=== PATIENT | female | born 1945 | race Caucasian/White ===

== ENCOUNTER → 2018-02-21 | Day surgery (SDC) | payer OTHER ==
[~2018-02-21] VITALS: Ht 172.7 cm; Wt 59.0 kg
[~2018-02-21] MED LIST: AMPICILLIN/SULBAC 3 GM/NS 100 ML IV SCH; BACITRACIN TOP OINT 15 GM TUBE ONE; CHLORHEXIDINE GLUCONATE 2 % 1 PACK (2 CLOTHS) TOPICAL PRN; CHOLESTEROL MED PO; FLUO0.05 TOPICAL; HYDR-3516 PO; INSULIN HUMAN REGULAR 1,000 UNITS/10 ML VIAL SQ PRN; LACTATED RINGER'S 1000 ML IV PRN; LIDOCAINE 1%/EPINEPHrine 1:100,000 SOLN 30 ML VIAL ONE; LORA0.5T PO; METOPROLOL TARTRATE 25 MG TAB PO PRN; MUPI2%T TOPICAL; OXYMETAZOLINE HCL 0.05% 15 ML NASAL SPRAY ONE; POVIDONE IODINE 5% (ANTISEPSIS KIT) 4 APPLICATIONS EACH NARE PRN; SODIUM CHLORID 0.9% 500 ML IV PRN; SYMB160A INH
[2018-02-21 13:30] VITALS: PULSE 68
[2018-02-21 14:10] VITALS: BP 129/75; PULSE 69; RESP 18; O2SAT 97
--- NOTE | 2018-02-22 09:38 | EKG ---
Date Performed: 02/21/2018 Time Performed: 11:44:38 PTAGE: 72 years EKG: Sinus rhythm NORMAL ECG NO PREVIOUS TRACING DOCTOR: Peng Cesar Interpretating Date/Time 02/22/2018 09:37:34
== END | disposition home or self-care (01) ==
LOC: PHSDC 10:31
PROVIDERS: ATTEND Otolaryngology
DX: C30.0 Malignant neoplasm of nasal cavity (principal); J34.2 Deviated nasal septum; R09.81 Nasal congestion; Z01.810 Encounter for preprocedural cardiovascular examination
CPT/HCPCS: 00160; 30117; 88305; 93005; J0295; J3010; J7120; 88304